=== PATIENT | female | born 2005 | race Caucasian/White ===

== ENCOUNTER 2025-02-22 12:45 | Inpatient (IN) | payer MEDICAID, SELFPAY ==
[2025-02-22] VITALS (9 sets, daily range): BP systolic 107–148; BP diastolic 70–87; PULSE 82–110; RESP 10–21; TEMP 36.7–37.6; O2SAT 97–100; BMI 16.4
--- NOTE | ~2025-02-22 | CT_ITS ---
EXAMINATION: CT ABDOMEN AND PELVIS WITH CONTRAST CLINICAL INFORMATION: Abdominal pain COMPARISON: None available. TECHNIQUE: Multidetector volumetric images were obtained from the superior aspect of the liver through the pubic symphysis following administration 85 mL of Omnipaque 350 intravenous contrast. Sagittal and coronal reformatted images were obtained on the technologist's workstation. Oral contrast: No This CT examination was performed using dose optimization techniques as appropriate, variously including the following: *Automated exposure control *Adjustment of mA and/or kV according to patient size (this includes techniques or standardized protocols for targeted exams where dose is matched to indication/reason for exam; i.e. extremities or head) *Use of iterative reconstruction technique. DLP: 322 FINDINGS: LUNG BASES: The visualized lung bases are unremarkable. LIVER, GALLBLADDER, AND BILIARY TREE: The liver is normal in size, shape, and attenuation. No focal hepatic lesion or biliary ductal dilatation is present. The gallbladder is unremarkable with no evidence of radiopaque gallstones, gallbladder wall thickening, or obvious pericholecystic inflammatory changes. PANCREAS: Unremarkable. SPLEEN: Unremarkable. ADRENAL GLANDS: Unremarkable. KIDNEYS AND URETERS: There are bilateral striated nephrograms without radiopaque calculi. There is a large septated perinephric low-attenuation mass especially surrounding the left upper and mid pole resulting in scalloping of the lateral cortex. It measures approximately 9 cm in length and 3.3 cm wide and 25 Hounsfield units. There is a intra-articular renal cortical medullary lesion measuring 1.3 cm on axial slice 23/3 measuring 40 Hounsfield units. There are additional smaller lesions seen in the upper and lower pole right kidney. . It measures BLADDER: Unremarkable. GASTROINTESTINAL TRACT: Large amount of stool seen throughout the colon without significant distention. The small bowel loops are normal caliber. Appendix is not visualized. No free air or free fluid suspected.. ABDOMINAL WALL: No significant hernia is appreciated. LYMPH NODES: Normal. VASCULAR: Unremarkable. PELVIC VISCERA: There is no free fluid. No abnormal pelvic lymphadenopathy. OSSEOUS STRUCTURES: No aggressive lytic or sclerotic process seen . No rib fracture seen. CT/CT abdomen pelvis w IV con IMPRESSION: Moderate to significant constipation. No bowel obstruction Striated bilateral nephrograms with a large perinephric hypodense mass scalloping the lateral cortex of left kidney. Differential diagnostic includes hematoma from trauma, ruptured angiomyolipoma or sequelae of striated nephrogram. Correlate with clinical history or previous CT there labile Differential diagnosis for right nephrogram includes ureteric obstruction, acute pyelonephritis, renal contusion, renal and thrombosis or normal delayed nephrogram phase. , Fleischner guidelines were followed. Electronically signed by: Edgardo Beverly MD 02/24/2025 07:36 AM EDT RP
--- NOTE | 2025-02-22 12:48 | ED_ITS ---
HPI - General Adult General Chief complaint: Abdominal Pain Stated complaint: Stomach Pain x 2 Days Time Seen by Provider: 02/22/25 14:26 Source: patient Mode of arrival: ambulatory History of Present Illness ED Provider: HPI narrative: 20-year-old female with history of type 1 diabetes, 5 days ago switched over her insulin pump to she reports sliding scale, has been having increased epigastric abdominal pain, stated he had an episode of nausea and vomiting reports her sugars have been in 200s, when she presented there was noted that she was significantly hyperglycemic with glucose over 600, she has had DKA in the past. Denies alcohol use, drug use at least for the past 1 month prior to that sounds like she was a social drinker, no rashes no vaginal bleeding or discharge reported. Has not had any other symptoms to suspect underlying infectious etiology such as cough, but does state that she has had decreased p.o. intake and decreased appetite for the past few weeks. Sounds like she has had some stomach issues and epigastric abdominal pain which led up to this. Related Data Allergies Allergy/AdvReac Type Severity Reaction Status Date / Time No Known Allergies Allergy Verified 02/22/25 12:51 Review of Systems 2 Constitutional: Constitutional: Reports as per [facility] Social History Social History Advance Directives: No Advance Directives Information Provided: Yes Patient : No Physical Exam ED Vital Signs: Vital Signs - 24 hr 02/22/25 12:47 Temperature 98.7 F Pulse Rate 110 H Respiratory Rate 20 Blood Pressure 148/87 H Pulse Oximetry 100 Oxygen Delivery Method Room Air BMI result Body Mass Index 16.4 Const Other: * Gen: ?Overall well-appearing patient * HEENT: Dry oral mucosa, no lymphadenopathy, uvula midline * Neck: Supple, * CV: RRR, no obvious murmurs appreciated * Resp: ?No wheezing rales rhonchi no stridor moving air well * Abd: ?Epigastric tenderness, bilateral lower quadrant tenderness, essentially generalized tenderness throughout, and she reported CVA tenderness on both sides as well * MSK: FROM, strength 5/5 all extremities * Skin:dry, intact, no mottling noted, extremities warm to touch * Neuro: ?Alert and oriented x3, moving upper and lower extremities symmetrically, no obvious facial asymmetry noted Course Course Course Narrative: This is a rapid medical exam performed by Jose Gutierrez NP: Additional HPI, ROS, PE not included below will be deferred to primary provider. Patient is a 20-year-old female with pmhx T1DM presenting with complaint of generalized abd pain since yesterday which she describes as severe. Vomited x 2 today after taking antacids. Feels weak/dizzy. Denies fever. Worse with laying, ambulation and sitting. Afebrile, mildly tachycardic at 110. Plan: labs, UA Medical Decision Making Medical Decision Making [facility] Narrative: 15:11 patient evaluated with signs and symptoms consistent with diabetic ketoacidosis, wondering whether the onset was due to the fact that she has switched over from insulin pump to sliding scale, she states she ran out of her insulin pump medication. She has also had some abdominal discomfort and acid reflux, she is cachectic and sounds like she has had some stomach issues in eating issues. Her blood work is consistent with diabetic ketoacidosis, she has metabolic acidosis, anion gap of 32, checked and a lactate but gap can be explained by beta hydroxybutyrate which was 9.48, she also has creatinine of 1.7 her prior blood work revealed that she has normal creatinine this is from her last visit at [facility]. This is the 1st time she is in this institution. She is complaining of epigastric abdominal pain I would hold off any imaging at this time, and she does have a leukocytosis that is very frequent fighting in diabetics and so I would treat her with fluids, antiemetics, re-evaluate and determine whether imaging is indicated. Because she is going to be on insulin drip to close the gap she is going to be going to ICU, this has been discussed with Emil Thurman. Lab Data [facility] Lab Attestation statement: I reviewed the patient's lab results. 02/22/25 13:29 02/22/25 13:29 Labs: Lab Results 02/22/25 02/22/25 Range/Units 13:29 13:35 WBC 16.8 H (4.8-10.8) X10*3/uL RBC 3.72 L (4.20-5.50) X10*6/uL Hgb 12.0 (12.0-16.0) g/dl Hct 34.2 L (37.0-47.0) % MCV 91.9 (80.0-98.0) fL MCH 32.3 (27.0-33.0) pg MCHC 35.1 H (31.0-35.0) g/dl RDW 12.1 (11.0-16.0) % Plt Count 287 (160-400) X10*3/uL MPV 9.3 L (9.4-12.3) fL Immature Gran % (Auto) 1.2 H (0.0-0.4) % Neut % (Auto) 89.9 H (45-73) % Lymph % (Auto) 3.3 L (20-40) % [place] % (Auto) 5.2 (2-11) % Eos % (Auto) 0.0 (0-4) % Baso % (Auto) 0.4 (0-2) % Lymph # (Auto) 0.6 L (1.2-4.9) X10*3/uL [place] # (Auto) 0.9 (0.1-1.2) X10*3/uL Eos # (Auto) 0.0 (0.0-0.4) X10*3/uL Baso # (Auto) 0.1 (0.0-0.2) X10*3/uL Abs Immat Gran (auto) 0.20 H (0.00-0.03) X10*3/uL Absolute Neuts (auto) 15.1 H (2.0-8.3) x10*3/uL Absolute Nucleated RBC 0.000 (0.0-0.012) X10*3/uL Nucleated RBC % (auto) 0.0 (0.0-0.2) /100WBC VBG pH 7.18 L* (7.32-7.43) VBG pCO2 21 mmHg VBG pO2 34 mmHg VBG HCO3 8 L (22-26) mmol/L VBG O2 Saturation 42.0 % VBG Base Excess -18.0 mmol/L Sodium 130 L (135-145) mmol/L Potassium 4.7 (3.3-5.1) mmol/L Chloride 95 L (96-108) mmol/L Carbon Dioxide 8 L* (22-29) mmol/L Anion Gap 32 H (12-20) BUN 18 H (9-16) mg/dL Creatinine 1.70 H (0.5-1.4) mg/dL Estim Creat Clear Calc 35.0 Estimated GFR 38 Random Glucose 603 H* (60-115) mg/dL Calcium 9.3 (8.4-10.2) mg/dL Total Bilirubin 0.5 (0.0-1.0) mg/dL AST 14 (5-31) U/L ALT 6 (0-31) U/L Alkaline Phosphatase 170 H (39-117) U/L Total Protein 7.4 (6.5-8.0) g/dL Albumin 3.4 L (3.5-5.0) g/dL Lipase 13 (8-78) U/L Beta-Hydroxybutyrate 9.48 H (0.02-0.27) mmol/L Beta HCG, Quant < 2 mIU/mL Critical Care Time Critical Care Time Critical Care Time: Yes Total Critical Care Time: 40 Attestation: Time is exclusive of separately billable procedures. Time includes: direct patient care, patient reassessment, coordination of patient care, interpretation of data (laboratory data, pulse oximetry, arterial blood gases and chest xrays), review of patient's medical records, medical consultation and documentation of patient care. Procedures excluded from critical care time: central intravenous line placement and electrocardiography. Discharge Plan Discharge Clinical Impression: DKA, type 1 Patient Disposition: Admitted As Inpatient Print Language: Angolan
[2025-02-22 13:36] LABS: MANUAL DIFF FLAG NO
[2025-02-22 13:37] LABS: Venous Blood Gas Refer to POC result
[2025-02-22 13:40] LABS: Basophils Absolute Auto 0.1 X10*3/uL (0.0-0.2); Basophils Percent Auto 0.4 % (0-2); Hematocrit 34.2 % (37.0-47.0); Imm Gran Pct Auto 1.2 % (0.0-0.4); Lymphocytes Absolute Auto 0.6 X10*3/uL (1.2-4.9); Lymphocytes Percent Auto 3.3 % (20-40); Mean Corpuscular HGB Conc 35.1 g/dl (31.0-35.0); Mean Corpuscular Hemoglobin 32.3 pg (27.0-33.0); Mean Corpuscular Volume 91.9 fL (80.0-98.0); Mean Platelet Volume 9.3 fL (9.4-12.3); Monocytes Absolute Auto 0.9 X10*3/uL (0.1-1.2); Monocytes Percent Auto 5.2 % (2-11); Neutrophils Absolute Auto 15.1 x10*3/uL (2.0-8.3); Neutrophils Percent Auto 89.9 % (45-73); Platelet Count 287 X10*3/uL (160-400); Red Blood Count 3.72 X10*6/uL (4.20-5.50); Red Cell Distribution Width 12.1 % (11.0-16.0); White Blood Count 16.8 X10*3/uL (4.8-10.8)
[2025-02-22 13:44] LABS: VBG HCO3 8 mmol/L (22-26); VBG pCO2 21 mmHg; VBG pH 7.18 (7.32-7.43); VBG pO2 34 mmHg
[2025-02-22 14:08] LABS: Alanine Aminotransferase 6 U/L (0-31); Albumin Level 3.4 g/dL (3.5-5.0); Alkaline Phosphatase 170 U/L (39-117); Anion Gap 32 (12-20); Aspartate Amino Transferase 14 U/L (5-31); Bilirubin Total 0.5 mg/dL (0.0-1.0); Blood Urea Nitrogen 18 mg/dL (9-16); Calcium 9.3 mg/dL (8.4-10.2); Carbon Dioxide 8 mmol/L (22-29); Chloride 95 mmol/L (96-108); Estimated Glomerular Filt Rate 38; Glucose Random 603 mg/dL (60-115); HCG Quantitative < 2 mIU/mL; Lipase 13 U/L (8-78); Potassium 4.7 mmol/L (3.3-5.1); Sodium 130 mmol/L (135-145); Total Protein 7.4 g/dL (6.5-8.0)
[2025-02-22 14:45] LABS: Beta-Hydroxybutyrate 9.48 mmol/L (0.02-0.27)
--- OUTSIDE RECORDS SUMMARY | 2025-02-22 14:48 | XMS_ITS | Data Portability ---
Author Organization [facility] [address] Address [address] [place] [id number] Assessment No assessment recorded. Plan of Treatment Reminders Order Date Submit Date Provider Last Modified By Organization Details Last Modified Time Details Appointments None recorded. Lab None recorded. Referral None recorded. Procedures None recorded. Surgeries None recorded. Imaging None recorded. Medication Orders albuterol sulfate HFA 90 mcg/actuat ion aerosol inhaler 2023 [id number], [address] [place], [address], 16:41:25 Patient TargetsNo targets recorded. Patient Instructions Encounter Date Encounter Id Patient Instructions Last Modified By Organization Details Last Modified Time 02/18/2024 [id number] cough: care instructions [email or web address] Not available 02/18/2024 16:41:23 Reason for Referral None Reported. Problems Name Problem SNOMED Code Status Onset Date Resolution Date Notes Provider Name and Address Organization Details Recorded Time Type 1 diabetes mellitus 74189100 Active 024 CANDE Woods [facility] [place], [address] , [facility]DE Lewis [facility] 4 16:42:06 Problem Notes None recorded. Medical Equipment None Reported. Allergies No known drug allergies Medications Name Sig Start Date Stop Date Status Note LastModified by Organization Details LastModified Time freestyle lite test strips strp active Not Available Not Available Not Available penicillin V potassium 500 mg tablet TAKE 1 TABLET BY MOUTH TWICE A DAY active Not Available Not Available No t Available insulin aspart U-100 100 unit/mL subcutaneous solution INFUSE VIA INSULIN PUMP, MAX DAILY DOSE 100UNITS/ DAY active Not Available Not Available No t Available amoxicillin 875 mg-potassium clavulanate 125 mg tablet active Not Available Not Available Not Available Ventolin HFA 90 mcg/actuatio n aerosol inhaler Inhale 2 puffs every 4 hours by inhalation route for 30 days. active Not Available Not Available No t Available insulin aspar prot-insulin aspart 100 unit/mL (70-30) subcutaneous pen Inject by subcutaneou s route. active Not Available Not Available No t Available insulin aspart (U-100) 100 unit/mL (3 mL) subcutaneous pen SUBCUTANEOU S INFUSION 5-7 TIMES PER DAY. MAX DAILY DOSE 50 UNITS. active Not Available Not Available No t Available Lantus Solostar U-100 Insulin 100 unit/mL (3 mL) subcutaneous pen INJECT MAX DAILY DOSE OF 50 UNITS DAILY. FOR USE AT HOME AND SCHOOL. USE DOSING SHEET PROVIDED BY active Not Available Not Available No t Available Nexplanon 68 mg subdermal implant Inject by subcutaneou s route. active Not Available Not Available No t Available Dexcom G6 Sensor device IDDM USE TO MONITOR BLOOD SUGARS [facility] [id number] active Not Available Not Available Not Available Dexcom G6 Transmitter device USE WITH DEXCOM SENSOR DIRECTED active Not Available Not Available No t Available Baqsimi 3 mg/actuation nasal spray INSTILL 3MG INTO RIGHT NOSTRIL ONCE. USE FOR SIGNS OF SEVERE HYPOGLYCEMI A, REPEAT IN 15 MINUTES. active Not Available Not Available No t Available Omnipod 5 G6 Pods (Gen 5) subcutaneous cartridge USE TO GIVE INSULIN THROUGH OMNIPOD INSULIN PUMP. CHANGE EVERY 2-3 DAYS active Not Available Not Available No t Available Vitals Date Recorded Body height Body mass index (BMI) Body mass index (BMI) [Percentile] Per age and sex Body weight Body temperature Respiratory rate Oxygen saturation Oxygen saturation in Arterial blood by Pulse oximetry Heart rate Systolic blood pressure Diastolic blood pressure Provider Name and Address Organization Details Last Updated DateTime 4 157.48 cm 21 kg/m2 43 % 58064.1 2 g 96.9 [degF] 18 /min 100 % 100 % 71 /min 156 mm[Hg] 90 mm[Hg] Yola Rutherford [place] - [facility] 4 16:31:54 Social History Question Answer Notes LastModified by Organizat ion Details LastModified Time Tobacco Smoking Status Never Smoker CANDE Lay - [facility] 02/18/2024 16:30:15 Which Illicit Or Recreational Drugs Have You Used? Marijuana Information not available 02/18/2024 Have You Had Direct Contact, Or Contact During Intimacy, With Monkeypox Rash, Scabs, Or Body Fluids From A Person With Monkeypox? No Information not available 02/18/2024 What Was The Date Of Your Most Recent Tobacco Screening? 02/18/2024 Information not available 02/18/2024 Have You Recently Traveled Abroad? No Information not available 02/18/2024 Sex: Unknown Functional Status Question Answer Note LastModified by Organizat ion Details LastModified Time Do you use any illicit or recreational drugs? Yes Information not available 02/18/2024 Do you or have you ever used any other forms of tobacco or nicotine? No Information not available 02/18/2024 What is your level of alcohol consumption? Occasional Information not available 02/18/2024 Mental Status None recorded. Family History Relationship Description Onset Age of this Age Resolved Age Notes LastModified by Organization Details LastModified Time Father No current problems or disability Not available 02/17 16:29:58 Mother No current problems or disability Not available 02/17 16:29:58 Medical History No medical history recorded. Gynecological History Statement/Question Response Date of LMP Obstetrics History GPAL:G 0 P 0 0 0 0 Past Encounters Encounter ID Performer Location Encounter Start Date Encounter Closed Date Diagnosis/Indication Diagnosis SNOMED-CT Code Diagnosis ICD10 Code Diagnosis Note [id number] [address] [place] [address] 03/11/2020 09:01:53 03/11/2020 09:34:04 [id number] [address] [place] [address] 07/28/2018 09:42:45 07/28/2018 10:15:14 [id number] [address] [place] [address] 06/16/2018 16:34:19 06/16/2018 17:50:01 [id number] [address] [place] [address] 12/23/2018 15:42:58 12/23/2018 16:39:21 [id number] [address] [place] [address] 02/16/2018 15:50:43 02/16/2018 16:26:06 [id number] CANDE ARSHAD [address] [facility] [place] [address] 02/18/2024 16:20:50 02/18/2024 16:44:56 Cough 03511853 R05.9 You are being treated for a cough that is most like related to post nasal drainageCu rrently your exam does not suggest anything worrisome like pneumonia or a bacterial infection. The following are my recommenda tions to help you with your symptoms and recovery.1 . Take Ibuprofen or Tylenol if you do not have any allergies to these medication s. If you take a blood thinner you should not take NSAIDS like Ibuprofen. These medication will help with the inflammati on in your respirator y tract which should help the cough.2. Do not take any decongesta nts at this time because this will dry out that tract too much. If you have a lot of nasal congestion you can try nasal decongesta nts, but I would not take them more than 5 days.3. Use a humidifier or add a cup of water by your bed. Sometimes if our sleeping environmen t is too dry this can lead to cough4. Salt Water Gargles5. Saline nasal spray is helpful. I would be seen again if you develop any of the following. 1. Cough last longer than 3 weeks - and has not worsened2. You develop a thick productive cough3. Develop shortness of breath or wheezing4. Develop achy feel or discomfort in a specific chest location5. Fever > 100.5 I would go immediatel y to the Emergency Room if you develop:1. Chest Pain2. Severe Shortness of breath3. Coughing up Blood. Most coughs will resolve on their own without any interventi on in 3 weeks. If they last longer we need to evaluate and rule out some other condition like Acid Reflux, or lung pathology. Thank you for using [facility] today - please don't hesitate to contact up or return to see if you have any questions or concerns. Health Concerns Section Related Observation LastModified by Organization Detai ls LastModified Time None Recorded Concern Status LastModified by Organization Details LastModified Time None Recorded Advance Directives Directive None Recorded Payers Insurance Date Sequence Insurance Name Policy Number Policy Nguyễn Covered Member ID Nguyễn Member ID Guarantor Name 03/03/[address] [facility] - DOS ON OR AFTER 2023 - [facility] (MEDICAID REPLACEMENT - HMO) Irma Recio [id number] Irma Recio 02/18/2024 1 [employer] - DOS ON OR AFTER 2023 - [facility] [employer] (MEDICAID REPLACEMENT - HMO) Irma Recio [id number] Irma Recio Notes Date Note Type Note Provider Name and Address Organization Details Recorded Time 02/18/2024 text/html 19 y/o female with a week of congestion and cough, bringing up mucus with cough. some SOB with coughing fits CANDE Woods [address] [place], [address], [place] - [facility] 02/18/2024 16:42:37 OBGyn Episode No OBEpisode recorded.
[2025-02-22] MEDS: Insulin Regular, Human 100 UNIT/ML 10 ML VIAL IVPUSH (15:33)
[2025-02-22] MEDS: Insulin Regular/NS 100 UNIT/100 ML PLAST..BAG IVCONT (15:33)
[2025-02-22] MEDS: Lactated Ringers 1,000 ML 250 ML IVCONT ×2 (15:40→18:05)
[2025-02-22] MEDS: ondansetron HCL 4 MG/2 ML VIAL IVPUSH (15:40)
[2025-02-22] MEDS: Heparin Sodium,Porcine 5,000 UNIT/ML VIAL 5000 UNIT SUBCUT ×2 (15:40→23:06)
--- NOTE | 2025-02-22 15:56 | PM.CCHP ---
History of Present Illness Date of Service: 02/22/25 Chief Complaint: Abdominal pain 20-year-old lady with underlying type 1 diabetes mellitus recently switch to insulin pump presenting with nausea, vomiting, and abdominal pain over the last day. On ER evaluation patient with diabetic ketoacidosis, started on IV insulin and IV fluids and admitted to the intensive care unit. Review of Systems Constitutional: Constitutional: Denies daytime sleepiness, Denies excessive sweating, Denies fatigue, Denies fever(s), Denies lethargy, Denies malaise, Denies night sweats, Denies snoring and Denies weight loss Eyes: Eyes: Denies blurry vision and Denies itchy eyes ENT: Denies nasal congestion, Denies post nasal drip, Denies sinus pain, Denies sinus pressure and Denies other ( Thrush) Cardiovascular: Cardiovascular: Denies chest pain, Denies pedal edema, Denies dyspnea, Denies orthopnea and Denies paroxysmal nocturnal dyspnea Respiratory: Respiratory: Denies cough, Denies hemoptysis, Denies excessive phlegm production, Denies dyspnea, Denies snoring and Denies wheezing Gastrointestinal: Gastrointestinal: Reports abdominal pain, Denies heartburn and Reports nausea Musculoskeletal: Musculoskeletal: Denies myalgias, Denies arthralgias and Denies joint swelling Integumentary/Breasts: Skin/Breast: Denies rash Neurologic: Denies memory loss and Denies seizure-like activity Psychiatric: Psychiatric: Denies abnormal sleep pattern, Denies anxiety and Denies memory loss Endocrine: Endocrine: Denies excessive sweating, Denies fatigue and Denies heat intolerance Hematologic/Lymphatic: Hematologic/Lymphatic: Denies easy bruising Allergic/Immunologic: Allergic/Immunologic: Denies itchy eyes, Denies seasonal rhinorrhea and Denies wheezing PMFSH Social History Social History Advance Directives: No Advance Directives Information Provided: Yes Patient : No Meds Allergies Allergy/AdvReac Type Severity Reaction Status Date / Time No Known Allergies Allergy Verified 02/22/25 12:51 Active Medications: Current Medications Heparin Sodium (Porcine) (Heparin Sodium,Porcine 5,000 Unit/Ml Vial) 5,000 unit SUBCUT Q[facility]H [facility] Last Admin: 02/22/25 15:40 Dose: 5,000 unit Lactated Ringer's (Lr) 1,000 mls @ 250 mls/hr IVCONT .Q4H [facility] Last Admin: 02/22/25 15:40 Dose: 250 mls/hr Insulin Human Regular (Myxredlin) 100 unit in 100 mls @ 4 mls/hr IVCONT .Q24H [facility]; Protocol Last Admin: 02/22/25 15:33 Dose: 4 unit/hr, 4 mls/hr Physical Exam Vital Signs: Vital Signs: Last Vital Signs Temp 98.7 F 02/22/25 12:47 Pulse 110 H 02/22/25 12:47 Resp 20 02/22/25 12:47 BP 148/87 H 02/22/25 12:47 Pulse Ox 100 02/22/25 12:47 O2 Del Method Room Air 02/22/25 12:47 BMI result Body Mass Index 16.4 Const: General: no acute distress, alert and awake Eyes: Sclerae: sclerae normal EOM: EOMs intact bilaterally Neck: Neck: Yes no lymphadenopathy, Yes trachea midline and Yes supple Resp: Effort & Inspection: normal respiratory effort and no respiratory distress Auscultation: clear to auscultation bilaterally Cardio: Rate: tachycardic Rhythm: regular rhythm Heart sounds: no gallops, no murmurs and no rubs GI: Palpation (GI): Soft to palpation and Other GI palpation findings present ( Nontender) Auscultation: normal bowel sounds Extrem: General: Yes no pedal edema, No clubbing and No cyanosis Results Labs 02/22/25 13:29 02/22/25 13:29 Labs: Laboratory Results - last 24 hr 02/22/25 02/22/25 13:29 13:35 MCV 91.9 MCH 32.3 MCHC 35.1 H RDW 12.1 Plt Count 287 MPV 9.3 L Immature Gran % (Auto) 1.2 H Neut % (Auto) 89.9 H Lymph % (Auto) 3.3 L [place] % (Auto) 5.2 Eos % (Auto) 0.0 Baso % (Auto) 0.4 Lymph # (Auto) 0.6 L [place] # (Auto) 0.9 Eos # (Auto) 0.0 Baso # (Auto) 0.1 Abs Immat Gran (auto) 0.20 H Absolute Neuts (auto) 15.1 H Absolute Nucleated RBC 0.000 Nucleated RBC % (auto) 0.0 VBG pH 7.18 L* VBG pCO2 21 VBG pO2 34 VBG HCO3 8 L VBG O2 Saturation 42.0 VBG Base Excess -18.0 Anion Gap 32 H Estim Creat Clear Calc 35.0 Estimated GFR 38 Random Glucose 603 H* Calcium 9.3 Total Bilirubin 0.5 AST 14 ALT 6 Alkaline Phosphatase 170 H Total Protein 7.4 Albumin 3.4 L Lipase 13 Beta-Hydroxybutyrate 9.48 H Beta HCG, Quant < 2 Assessment and Plan (1) DKA, type 1: Qualifiers: Diabetes mellitus complication detail: without coma Qualified Code(s): E10.10 - Type 1 diabetes mellitus with ketoacidosis without coma Status: Acute Plan Assessment: 20-year-old lady admitted with diabetic ketoacidosis, likely secondary to recent switch to pump insulin Plan: Neuro: No acute issues. Cardiac: No acute issues. Pulmonary: No acute issues. Renal: Acute renal failure with metabolic acidosis likely secondary to diabetic ketoacidosis. Non oliguric. Continue IV fluid support. Continue to monitor renal indices and urine output. Endo: Diabetic ketoacidosis, continue to titrate off insulin drip as per protocol. GI: No acute issues. ID: No acute issues Heme/Onc: No acute issues. Psych: No acute issues. Miscellaneous: No acute issues. Prophylaxis: Heparin Diet: NPO
[2025-02-22] MEDS: Magnesium Hydrox/Alum Hydrox 30 ML ORAL.SUSP PO (15:57)
[2025-02-22] MEDS: Famotidine/PF 20 MG/2 ML VIAL IVPUSH (15:57)
[2025-02-22 16:25] LABS: Lactic Acid 2.4 mmol/L (0.5-2.0)
[2025-02-22 16:30] LABS: Glucose, Whole Blood 380 mg/dL (60-115)
[2025-02-22 17:05] LABS: Glucose, Whole Blood 331 mg/dL (60-115)
[2025-02-22 17:45] LABS: Appearance Urine Clear; Color Urine Yellow; Glucose Urine UA >=1000 mg/dL (Negative); Leukocyte Esterase Urine Negative (Negative); Nitrite Urine Negative (Negative); PH 5.5 (5.0-9.0); Specific Gravity - Urine 1.015 (1.005-1.025); UMIC TRIGGER UA YES; UMIC TRIGGER UACC YES; Urine Blood Negative (Negative); Urine Ketones >=160 mg/dL (Negative); Urine Protein Negative (Neg-Trace)
--- NOTE | 2025-02-22 17:50 | PHA.MEDREC ---
Addendum entered by Monse Nelson RPh 02/22/25 18:16: Demetrice called patient's mother but no one picked up the phone. Dr. Thurman was made aware of the discrepancies between what patient said and what were filled. Med rec was reviewed by [facility]. Original Note: Pharmacy Consult ? Medication Reconciliation Pharmacy has completed the medication reconciliation. Spoke to patient to confirm med list Patient states she takes novolin per sliding scale and Lantus 38 units at bedtime , however there are no claims. Patient says she fill all her medications from [facility]. Called [facility] and they confirm patient last filled Insulin Aspart 05/09/24, however there was script on hold for Insulin Aspart max 50 units per day and Lantus max 50 units at bedtime since October 2024 that was never picked up. Had ICU Nurse ask if patient fills at any other pharmacy and she told him she filled at [facility]. Called [facility] and they confirmed that patient last filled 08/18/2024 Insulin Aspart 100 units/ ml, Dexcom G6 sensor and Transmitter , and Omnipod 5 G6/7 pods in. No claims for Lantus with them. Patient states she has a nexplanon implant in her right arm.
[2025-02-22 17:53] LABS: Amphetamine Screen Urine Not Detected (Not Detect); Barbiturates, Urine Not Detected (Not Detect); Benzodiazepines Screen Urine Not Detected (Not Detect); Buprenorphine Scr Not Detected (Not Detect); Cannabinoid Screen Urine Not Detected (Not Detect); Cocaine Screen Urine Not Detected (Not Detect); Fentanyl, urine Not Detected (Not Detect); Methadone Screen, Urine Not Detected (Not Detect); Opiate Screen Urine Not Detected (Not Detect); Oxycodone Screen Urine Not Detected (Not Detect); Phencyclidine Screen Urine Not Detected (Not Detect)
[2025-02-22 17:58] LABS: Reflex Lactate? Lactic Acid Added
[2025-02-22 18:05] LABS: Glucose, Whole Blood 315 mg/dL (60-115)
[2025-02-22 18:09] LABS: Bacteria Urine None Seen (None Seen); RBC Urine 0-2 /HPF (0-2); Squamous Epithelial Cell Urine 0-2 /HPF (0-2); WBC Urine 0-5 /HPF (0-5)
[2025-02-22] MEDS: fentaNYL citrate/PF 100 MCG/2 ML VIAL 50 MCG IVPUSH (18:28)
[2025-02-22 19:04] LABS: ~Lactic Acid-LAB USE ONLY 1.3 mmol/L (0.5-2.0)
[2025-02-22 19:14] LABS: Glucose, Whole Blood 291 mg/dL (60-115)
[2025-02-22 20:05] LABS: Glucose, Whole Blood 230 mg/dL (60-115)
[2025-02-22 20:21] LABS: Anion Gap 17 (12-20); Blood Urea Nitrogen 15 mg/dL (9-16); Calcium 8.4 mg/dL (8.4-10.2); Carbon Dioxide 15 mmol/L (22-29); Chloride 106 mmol/L (96-108); Creatinine Clr Calc Pharmacy 56.8; Estimated Glomerular Filt Rate > 60; Glucose Random 250 mg/dL (60-115); Potassium 3.3 mmol/L (3.3-5.1); Sodium 135 mmol/L (135-145)
[2025-02-22] MEDS: Dextrose 5 % and Lactated Ring 1,000 ML 150 ML IVCONT (20:59)
[2025-02-22] MEDS: Potassium Chloride/H20 10 MEQ/100 ML PIGGYBACK 100 MEQ IV ×3 (21:01→23:06)
[2025-02-22 21:05] LABS: Glucose, Whole Blood 187 mg/dL (60-115)
[2025-02-22 22:09] LABS: Glucose, Whole Blood 172 mg/dL (60-115)
[2025-02-22 23:12] LABS: Glucose, Whole Blood 179 mg/dL (60-115)
[2025-02-23] VITALS (18 sets, daily range): BP systolic 93–117; BP diastolic 59–80; PULSE 81–107; RESP 14–23; TEMP 36.2–37.5; O2SAT 93–100; BMI 16.5
[2025-02-23 00:04] LABS: Glucose, Whole Blood 149 mg/dL (60-115)
[2025-02-23] MEDS: Potassium Chloride/H20 10 MEQ/100 ML PIGGYBACK 100 MEQ IV (00:13)
[2025-02-23 01:06] LABS: Glucose, Whole Blood 140 mg/dL (60-115)
[2025-02-23 01:40] LABS: Anion Gap 13 (12-20); Blood Urea Nitrogen 12 mg/dL (9-16); Calcium 8.3 mg/dL (8.4-10.2); Carbon Dioxide 21 mmol/L (22-29); Chloride 106 mmol/L (96-108); Creatinine Clr Calc Pharmacy 64.8; Estimated Glomerular Filt Rate > 60; Glucose Random 152 mg/dL (60-115); Magnesium 1.7 mg/dL (1.6-2.6); Phosphorus 1.4 mg/dL (2.7-4.5); Potassium 3.5 mmol/L (3.3-5.1); Sodium 136 mmol/L (135-145)
[2025-02-23 02:05] LABS: Glucose, Whole Blood 174 mg/dL (60-115)
[2025-02-23] MEDS: Potassium Phosphate/NS 15 MMOL/250 ML PLAST..BAG 62.5 MMOL IV (02:21)
[2025-02-23] MEDS: Dextrose 5 % and Lactated Ring 1,000 ML 150 ML IVCONT (03:04)
[2025-02-23 03:20] LABS: Glucose, Whole Blood 203 mg/dL (60-115)
[2025-02-23 04:04] LABS: Glucose, Whole Blood 187 mg/dL (60-115)
--- NOTE | 2025-02-23 04:56 | PC.NURSE ---
Assumed care at 1900. Patient is alert and oriented x4, very pleasant. Insulin gtt running per MAR, titrated per DKA protocol. IV fluids changed from LR to D5LR per REPORTING DEVELOPER Catrachito, see MAR. Patient endorses mild abdominal pain/discomfort, but reports it is much improved. Patient able to ambulate to the commode to void without issue. Patient repositions self in bed. Bed locked in lowest position, call cullen within reach.
[2025-02-23 05:07] LABS: Glucose, Whole Blood 200 mg/dL (60-115)
[2025-02-23 05:16] LABS: VBG Base Excess 0.8 mmol/L; VBG HCO3 22 mmol/L (22-26); VBG pCO2 25 mmHg; VBG pH 7.55 (7.32-7.43); VBG pO2 64 mmHg
[2025-02-23 05:21] LABS: MANUAL DIFF FLAG NO
[2025-02-23 05:26] LABS: Basophils Absolute Auto 0.1 X10*3/uL (0.0-0.2); Basophils Percent Auto 0.4 % (0-2); Eosinophils Percent Auto 0.2 % (0-4); Hematocrit 26.4 % (37.0-47.0); Hemoglobin 9.6 g/dl (12.0-16.0); Imm Gran Abs Auto 0.07 X10*3/uL (0.00-0.03); Imm Gran Pct Auto 0.6 % (0.0-0.4); Lymphocytes Absolute Auto 1.2 X10*3/uL (1.2-4.9); Lymphocytes Percent Auto 9.3 % (20-40); Mean Corpuscular HGB Conc 36.4 g/dl (31.0-35.0); Mean Platelet Volume 9.6 fL (9.4-12.3); Monocytes Absolute Auto 1.1 X10*3/uL (0.1-1.2); Monocytes Percent Auto 8.6 % (2-11); Neutrophils Absolute Auto 10.2 x10*3/uL (2.0-8.3); Neutrophils Percent Auto 80.9 % (45-73); Platelet Count 238 X10*3/uL (160-400); Red Cell Distribution Width 11.9 % (11.0-16.0); White Blood Count 12.6 X10*3/uL (4.8-10.8)
[2025-02-23 05:46] LABS: Albumin Level 2.6 g/dL (3.5-5.0); Anion Gap 12 (12-20); Blood Urea Nitrogen 10 mg/dL (9-16); Calcium 8.2 mg/dL (8.4-10.2); Carbon Dioxide 20 mmol/L (22-29); Chloride 106 mmol/L (96-108); Estimated Glomerular Filt Rate > 60; Glucose Random 203 mg/dL (60-115); Magnesium 1.7 mg/dL (1.6-2.6); Phosphorus 2.9 mg/dL (2.7-4.5); Potassium 3.2 mmol/L (3.3-5.1); Sodium 135 mmol/L (135-145)
[2025-02-23 06:02] LABS: Venous Blood Gas Refer to POC result
[2025-02-23 06:05] LABS: Glucose, Whole Blood 181 mg/dL (60-115)
[2025-02-23] MEDS: Potassium Chloride ER 20 MEQ TAB.ER.PRT PO (06:28)
[2025-02-23 07:13] LABS: Glucose, Whole Blood 185 mg/dL (60-115)
[2025-02-23] MEDS: Heparin Sodium,Porcine 5,000 UNIT/ML VIAL 5000 UNIT SUBCUT ×3 (07:52→23:33)
[2025-02-23] MEDS: Albumin Human 25 % 50 ML 100 ML IV ×4 (07:52→09:43)
[2025-02-23 08:25] LABS: Glucose, Whole Blood 169 mg/dL (60-115)
[2025-02-23] MEDS: Insulin Glargine,Hum.rec.anlog 100 UNIT/ML 10 ML VIAL 30 UNIT SUBCUT (08:35)
--- NOTE | 2025-02-23 09:42 | MHC.CM.PN ---
CM MET WITH PT AT BEDSIDE IN ICU. 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 PT DECLINES TO COMPLETE A HCP AT THIS TIME. PCP FRANSISCA STOVALL DP: HOME WITH FAMILY SUPPORT IS THE GOAL. PT 'S FAMILY WITH TRANSPORT. CM WILL CONTINUE TO FOLLOW FOR ANY CHANGE TO DC PLAN/NEEDS.
--- NOTE | 2025-02-23 10:28 | PM.CCPN ---
Subjective Subjective Date of Service: 02/23/25 Interval History: 20-year-old lady with underlying type 1 diabetes mellitus recently switch to insulin pump presenting with nausea, vomiting, and abdominal pain over the last day. On ER evaluation patient with diabetic ketoacidosis, started on IV insulin and IV fluids and admitted to the intensive care unit. No events overnight. Titrated off insulin drip. Critical Care Time (minutes): 0 Physical Exam Vital Signs: Vital Signs: Last Vital Signs Temp 97.5 F 02/23/25 08:00 Pulse 107 H 02/23/25 09:00 Resp 18 02/23/25 09:00 BP 102/68 02/23/25 09:00 Pulse Ox 99 02/23/25 09:00 O2 Del Method Room Air 02/23/25 09:00 BMI result Body Mass Index 16.5 Const: General: no acute distress, alert and awake Eyes: Sclerae: sclerae normal EOM: EOMs intact bilaterally Neck: Neck: Yes no lymphadenopathy, Yes trachea midline and Yes supple Resp: Effort & Inspection: normal respiratory effort and no respiratory distress Auscultation: clear to auscultation bilaterally Cardio: Rate: regular rate Rhythm: regular rhythm Heart sounds: no gallops, no murmurs and no rubs GI: Palpation (GI): Soft to palpation and Other GI palpation findings present ( Nontender) Auscultation: normal bowel sounds Extrem: General: Yes no pedal edema, No clubbing and No cyanosis Objective Data Labs 02/23/25 05:04 02/23/25 05:04 Labs: Laboratory Results - last 24 hr 02/22/25 02/22/25 02/22/25 13:29 13:35 15:51 WBC 16.8 H RBC 3.72 L Hgb 12.0 Hct 34.2 L MCV 91.9 MCH 32.3 MCHC 35.1 H RDW 12.1 Plt Count 287 MPV 9.3 L Immature Gran % (Auto) 1.2 H Neut % (Auto) 89.9 H Lymph % (Auto) 3.3 L [place] % (Auto) 5.2 Eos % (Auto) 0.0 Baso % (Auto) 0.4 Lymph # (Auto) 0.6 L [place] # (Auto) 0.9 Eos # (Auto) 0.0 Baso # (Auto) 0.1 Abs Immat Gran (auto) 0.20 H Absolute Neuts (auto) 15.1 H Absolute Nucleated RBC 0.000 Nucleated RBC % (auto) 0.0 VBG pH 7.18 L* VBG pCO2 21 VBG pO2 34 VBG HCO3 8 L VBG O2 Saturation 42.0 VBG Base Excess -18.0 Sodium 130 L Potassium 4.7 Chloride 95 L Carbon Dioxide 8 L* Anion Gap 32 H BUN 18 H Creatinine 1.70 H Estim Creat Clear Calc 35.0 Estimated GFR 38 POC Glucose Random Glucose 603 H* Lactic Acid 2.4 H* Lactic Acid F/U @ 2Hr Calcium 9.3 Phosphorus Magnesium Total Bilirubin 0.5 AST 14 ALT 6 Alkaline Phosphatase 170 H Total Protein 7.4 Albumin 3.4 L Lipase 13 Beta-Hydroxybutyrate 9.48 H Beta HCG, Quant < 2 Urine Color Urine Appearance Urine pH Ur Specific [place] Urine Protein Urine Glucose (UA) Urine Ketones Urine Blood Urine Nitrite Ur Leukocyte Esterase Urine RBC Urine WBC Ur Squamous Epith Cells Urine Bacteria Hyaline Casts Urine Opiates Screen Ur Buprenorphine Scrn Ur Oxycodone Screen Urine Methadone Screen Urine Fentanyl Screen Ur Barbiturates Screen Ur Phencyclidine Scrn Ur Amphetamines Screen U Benzodiazepines Scrn Urine Cocaine Screen U Marijuana (THC) Screen 02/22/25 02/22/25 02/22/25 16:26 17:02 17:30 WBC RBC Hgb Hct MCV MCH MCHC RDW Plt Count MPV Immature Gran % (Auto) Neut % (Auto) Lymph % (Auto) [place] % (Auto) Eos % (Auto) Baso % (Auto) Lymph # (Auto) [place] # (Auto) Eos # (Auto) Baso # (Auto) Abs Immat Gran (auto) Absolute Neuts (auto) Absolute Nucleated RBC Nucleated RBC % (auto) VBG pH VBG pCO2 VBG pO2 VBG HCO3 VBG O2 Saturation VBG Base Excess Sodium Potassium Chloride Carbon Dioxide Anion Gap BUN Creatinine Estim Creat Clear Calc Estimated GFR POC Glucose 380 H* 331 H Random Glucose Lactic Acid Lactic Acid F/U @ 2Hr Calcium Phosphorus Magnesium Total Bilirubin AST ALT Alkaline Phosphatase Total Protein Albumin Lipase Beta-Hydroxybutyrate Beta HCG, Quant Urine Color Yellow Urine Appearance Clear Urine pH 5.5 Ur Specific [place] 1.015 Urine Protein Negative Urine Glucose (UA) >=1000 H Urine Ketones >=160 Urine Blood Negative Urine Nitrite Negative Ur Leukocyte Esterase Negative Urine RBC 0-2 Urine WBC 0-5 Ur Squamous Epith Cells 0-2 Urine Bacteria None Seen Hyaline Casts 6-10 Urine Opiates Screen Not Detected Ur Buprenorphine Scrn Not Detected Ur Oxycodone Screen Not Detected Urine Methadone Screen Not Detected Urine Fentanyl Screen Not Detected Ur Barbiturates Screen Not Detected Ur Phencyclidine Scrn Not Detected Ur Amphetamines Screen Not Detected U Benzodiazepines Scrn Not Detected Urine Cocaine Screen Not Detected U Marijuana (THC) Screen Not Detected 02/22/25 02/22/25 02/22/25 18:01 18:33 19:11 WBC RBC Hgb Hct MCV MCH MCHC RDW Plt Count MPV Immature Gran % (Auto) Neut % (Auto) Lymph % (Auto) [place] % (Auto) Eos % (Auto) Baso % (Auto) Lymph # (Auto) [place] # (Auto) Eos # (Auto) Baso # (Auto) Abs Immat Gran (auto) Absolute Neuts (auto) Absolute Nucleated RBC Nucleated RBC % (auto) VBG pH VBG pCO2 VBG pO2 VBG HCO3 VBG O2 Saturation VBG Base Excess Sodium Potassium Chloride Carbon Dioxide Anion Gap BUN Creatinine Estim Creat Clear Calc Estimated GFR POC Glucose 315 H 291 H Random Glucose Lactic Acid Lactic Acid F/U @ 2Hr 1.3 Calcium Phosphorus Magnesium Total Bilirubin AST ALT Alkaline Phosphatase Total Protein Albumin Lipase Beta-Hydroxybutyrate Beta HCG, Quant Urine Color Urine Appearance Urine pH Ur Specific [place] Urine Protein Urine Glucose (UA) Urine Ketones Urine Blood Urine Nitrite Ur Leukocyte Esterase Urine RBC Urine WBC Ur Squamous Epith Cells Urine Bacteria Hyaline Casts Urine Opiates Screen Ur Buprenorphine Scrn Ur Oxycodone Screen Urine Methadone Screen Urine Fentanyl Screen Ur Barbiturates Screen Ur Phencyclidine Scrn Ur Amphetamines Screen U Benzodiazepines Scrn Urine Cocaine Screen U Marijuana (THC) Screen 02/22/25 02/22/25 02/22/25 19:56 20:02 21:01 WBC RBC Hgb Hct MCV MCH MCHC RDW Plt Count MPV Immature Gran % (Auto) Neut % (Auto) Lymph % (Auto) [place] % (Auto) Eos % (Auto) Baso % (Auto) Lymph # (Auto) [place] # (Auto) Eos # (Auto) Baso # (Auto) Abs Immat Gran (auto) Absolute Neuts (auto) Absolute Nucleated RBC Nucleated RBC % (auto) VBG pH VBG pCO2 VBG pO2 VBG HCO3 VBG O2 Saturation VBG Base Excess Sodium 135 Potassium 3.3 D Chloride 106 Carbon Dioxide 15 L Anion Gap 17 BUN 15 Creatinine 1.05 Estim Creat Clear Calc 56.8 Estimated GFR > 60 POC Glucose 230 H 187 H Random Glucose 250 H Lactic Acid Lactic Acid F/U @ 2Hr Calcium 8.4 D Phosphorus Magnesium Total Bilirubin AST ALT Alkaline Phosphatase Total Protein Albumin Lipase Beta-Hydroxybutyrate Beta HCG, Quant Urine Color Urine Appearance Urine pH Ur Specific [place] Urine Protein Urine Glucose (UA) Urine Ketones Urine Blood Urine Nitrite Ur Leukocyte Esterase Urine RBC Urine WBC Ur Squamous Epith Cells Urine Bacteria Hyaline Casts Urine Opiates Screen Ur Buprenorphine Scrn Ur Oxycodone Screen Urine Methadone Screen Urine Fentanyl Screen Ur Barbiturates Screen Ur Phencyclidine Scrn Ur Amphetamines Screen U Benzodiazepines Scrn Urine Cocaine Screen U Marijuana (THC) Screen 02/22/25 02/22/25 02/22/25 22:05 23:08 23:58 WBC RBC Hgb Hct MCV MCH MCHC RDW Plt Count MPV Immature Gran % (Auto) Neut % (Auto) Lymph % (Auto) [place] % (Auto) Eos % (Auto) Baso % (Auto) Lymph # (Auto) [place] # (Auto) Eos # (Auto) Baso # (Auto) Abs Immat Gran (auto) Absolute Neuts (auto) Absolute Nucleated RBC Nucleated RBC % (auto) VBG pH VBG pCO2 VBG pO2 VBG HCO3 VBG O2 Saturation VBG Base Excess Sodium Potassium Chloride Carbon Dioxide Anion Gap BUN Creatinine Estim Creat Clear Calc Estimated GFR POC Glucose 172 H 179 H 149 H Random Glucose Lactic Acid Lactic Acid F/U @ 2Hr Calcium Phosphorus Magnesium Total Bilirubin AST ALT Alkaline Phosphatase Total Protein Albumin Lipase Beta-Hydroxybutyrate Beta HCG, Quant Urine Color Urine Appearance Urine pH Ur Specific [place] Urine Protein Urine Glucose (UA) Urine Ketones Urine Blood Urine Nitrite Ur Leukocyte Esterase Urine RBC Urine WBC Ur Squamous Epith Cells Urine Bacteria Hyaline Casts Urine Opiates Screen Ur Buprenorphine Scrn Ur Oxycodone Screen Urine Methadone Screen Urine Fentanyl Screen Ur Barbiturates Screen Ur Phencyclidine Scrn Ur Amphetamines Screen U Benzodiazepines Scrn Urine Cocaine Screen U Marijuana (THC) Screen 02/23/25 02/23/25 02/23/25 01:02 01:11 02:01 WBC RBC Hgb Hct MCV MCH MCHC RDW Plt Count MPV Immature Gran % (Auto) Neut % (Auto) Lymph % (Auto) [place] % (Auto) Eos % (Auto) Baso % (Auto) Lymph # (Auto) [place] # (Auto) Eos # (Auto) Baso # (Auto) Abs Immat Gran (auto) Absolute Neuts (auto) Absolute Nucleated RBC Nucleated RBC % (auto) VBG pH VBG pCO2 VBG pO2 VBG HCO3 VBG O2 Saturation VBG Base Excess Sodium 136 Potassium 3.5 Chloride 106 Carbon Dioxide 21 L Anion Gap 13 BUN 12 Creatinine 0.92 Estim Creat Clear Calc 64.8 Estimated GFR > 60 POC Glucose 140 H 174 H Random Glucose 152 H Lactic Acid Lactic Acid F/U @ 2Hr Calcium 8.3 L Phosphorus 1.4 L Magnesium 1.7 Total Bilirubin AST ALT Alkaline Phosphatase Total Protein Albumin Lipase Beta-Hydroxybutyrate Beta HCG, Quant Urine Color Urine Appearance Urine pH Ur Specific [place] Urine Protein Urine Glucose (UA) Urine Ketones Urine Blood Urine Nitrite Ur Leukocyte Esterase Urine RBC Urine WBC Ur Squamous Epith Cells Urine Bacteria Hyaline Casts Urine Opiates Screen Ur Buprenorphine Scrn Ur Oxycodone Screen Urine Methadone Screen Urine Fentanyl Screen Ur Barbiturates Screen Ur Phencyclidine Scrn Ur Amphetamines Screen U Benzodiazepines Scrn Urine Cocaine Screen U Marijuana (THC) Screen 02/23/25 02/23/25 02/23/25 03:14 03:58 05:04 WBC 12.6 H RBC 3.00 L Hgb 9.6 L Hct 26.4 L D MCV 88.0 MCH 32.0 MCHC 36.4 H RDW 11.9 Plt Count 238 MPV 9.6 Immature Gran % (Auto) 0.6 H Neut % (Auto) 80.9 H Lymph % (Auto) 9.3 L [place] % (Auto) 8.6 Eos % (Auto) 0.2 Baso % (Auto) 0.4 Lymph # (Auto) 1.2 [place] # (Auto) 1.1 Eos # (Auto) 0.0 Baso # (Auto) 0.1 Abs Immat Gran (auto) 0.07 H Absolute Neuts (auto) 10.2 H Absolute Nucleated RBC 0.000 Nucleated RBC % (auto) 0.0 VBG pH VBG pCO2 VBG pO2 VBG HCO3 VBG O2 Saturation VBG Base Excess Sodium 135 Potassium 3.2 L Chloride 106 Carbon Dioxide 20 L Anion Gap 12 BUN 10 Creatinine 0.82 Estim Creat Clear Calc 73.0 Estimated GFR > 60 POC Glucose 203 H 187 H 200 H Random Glucose 203 H Lactic Acid Lactic Acid F/U @ 2Hr Calcium 8.2 L Phosphorus 2.9 Magnesium 1.7 Total Bilirubin AST ALT Alkaline Phosphatase Total Protein Albumin 2.6 L Lipase Beta-Hydroxybutyrate Beta HCG, Quant Urine Color Urine Appearance Urine pH Ur Specific [place] Urine Protein Urine Glucose (UA) Urine Ketones Urine Blood Urine Nitrite Ur Leukocyte Esterase Urine RBC Urine WBC Ur Squamous Epith Cells Urine Bacteria Hyaline Casts Urine Opiates Screen Ur Buprenorphine Scrn Ur Oxycodone Screen Urine Methadone Screen Urine Fentanyl Screen Ur Barbiturates Screen Ur Phencyclidine Scrn Ur Amphetamines Screen U Benzodiazepines Scrn Urine Cocaine Screen U Marijuana (THC) Screen 02/23/25 02/23/25 02/23/25 05:12 06:01 07:10 WBC RBC Hgb Hct MCV MCH MCHC RDW Plt Count MPV Immature Gran % (Auto) Neut % (Auto) Lymph % (Auto) [place] % (Auto) Eos % (Auto) Baso % (Auto) Lymph # (Auto) [place] # (Auto) Eos # (Auto) Baso # (Auto) Abs Immat Gran (auto) Absolute Neuts (auto) Absolute Nucleated RBC Nucleated RBC % (auto) VBG pH 7.55 H VBG pCO2 25 VBG pO2 64 VBG HCO3 22 VBG O2 Saturation 95.0 VBG Base Excess 0.8 Sodium Potassium Chloride Carbon Dioxide Anion Gap BUN Creatinine Estim Creat Clear Calc Estimated GFR POC Glucose 181 H 185 H Random Glucose Lactic Acid Lactic Acid F/U @ 2Hr Calcium Phosphorus Magnesium Total Bilirubin AST ALT Alkaline Phosphatase Total Protein Albumin Lipase Beta-Hydroxybutyrate Beta HCG, Quant Urine Color Urine Appearance Urine pH Ur Specific [place] Urine Protein Urine Glucose (UA) Urine Ketones Urine Blood Urine Nitrite Ur Leukocyte Esterase Urine RBC Urine WBC Ur Squamous Epith Cells Urine Bacteria Hyaline Casts Urine Opiates Screen Ur Buprenorphine Scrn Ur Oxycodone Screen Urine Methadone Screen Urine Fentanyl Screen Ur Barbiturates Screen Ur Phencyclidine Scrn Ur Amphetamines Screen U Benzodiazepines Scrn Urine Cocaine Screen U Marijuana (THC) Screen 02/23/25 08:22 WBC RBC Hgb Hct MCV MCH MCHC RDW Plt Count MPV Immature Gran % (Auto) Neut % (Auto) Lymph % (Auto) [place] % (Auto) Eos % (Auto) Baso % (Auto) Lymph # (Auto) [place] # (Auto) Eos # (Auto) Baso # (Auto) Abs Immat Gran (auto) Absolute Neuts (auto) Absolute Nucleated RBC Nucleated RBC % (auto) VBG pH VBG pCO2 VBG pO2 VBG HCO3 VBG O2 Saturation VBG Base Excess Sodium Potassium Chloride Carbon Dioxide Anion Gap BUN Creatinine Estim Creat Clear Calc Estimated GFR POC Glucose 169 H Random Glucose Lactic Acid Lactic Acid F/U @ 2Hr Calcium Phosphorus Magnesium Total Bilirubin AST ALT Alkaline Phosphatase Total Protein Albumin Lipase Beta-Hydroxybutyrate Beta HCG, Quant Urine Color Urine Appearance Urine pH Ur Specific [place] Urine Protein Urine Glucose (UA) Urine Ketones Urine Blood Urine Nitrite Ur Leukocyte Esterase Urine RBC Urine WBC Ur Squamous Epith Cells Urine Bacteria Hyaline Casts Urine Opiates Screen Ur Buprenorphine Scrn Ur Oxycodone Screen Urine Methadone Screen Urine Fentanyl Screen Ur Barbiturates Screen Ur Phencyclidine Scrn Ur Amphetamines Screen U Benzodiazepines Scrn Urine Cocaine Screen U Marijuana (THC) Screen Progress Note: A&P Assessment and plan (1) DKA, type 1: Status: Acute Plan Assessment: 20-year-old lady admitted with diabetic ketoacidosis, likely secondary to recent switch to pump insulin Plan: Neuro: No acute issues. Cardiac: No acute issues. Pulmonary: No acute issues. Renal: Acute renal failure with metabolic acidosis secondary to diabetic ketoacidosis, resolved. Non oliguric. Continue to monitor renal indices and urine output. Endo: Diabetic ketoacidosis, resolved. Titrated off insulin drip. Continue subcutaneous insulin. GI: No acute issues. ID: No acute issues Heme/Onc: No acute issues. Psych: No acute issues. Miscellaneous: No acute issues. Prophylaxis: Heparin Diet: Diabetic Quality Stroke Does the patient have a stroke diagnosis?: No VTE Prior VTE?: No VTE Risk Level:: Medical - moderate - high VTE Device Contraindication: Treatment Not Indicated VTE Drug Contraindication: N/A - Med Ordered
[2025-02-23 11:14] LABS: Glucose, Whole Blood 375 mg/dL (60-115)
[2025-02-23] MEDS: fentaNYL citrate/PF 100 MCG/2 ML VIAL 50 MCG IVPUSH (11:21)
[2025-02-23] MEDS: Insulin Lispro 100 UNIT/ML 3 ML VIAL SUBCUT ×4 (11:29→20:47)
[2025-02-23] MEDS: Insulin Glargine,Hum.rec.anlog 100 UNIT/ML 10 ML VIAL 10 UNIT SUBCUT ×2 (11:30→14:07)
[2025-02-23 13:50] LABS: Anion Gap 15 (12-20); Blood Urea Nitrogen 10 mg/dL (9-16); Calcium 8.3 mg/dL (8.4-10.2); Carbon Dioxide 22 mmol/L (22-29); Chloride 100 mmol/L (96-108); Creatinine Clr Calc Pharmacy 61.7; Estimated Glomerular Filt Rate > 60; Glucose Random 430 mg/dL (60-115); Potassium 3.7 mmol/L (3.3-5.1); Sodium 133 mmol/L (135-145)
[2025-02-23 16:34] LABS: Glucose, Whole Blood 224 mg/dL (60-115)
[2025-02-23] MEDS: iohexoL 350 MG/ML 100 ML INFUS..BTL IV (16:37)
[2025-02-23 20:46] LABS: Glucose, Whole Blood 233 mg/dL (60-115)
[2025-02-23] MEDS: Acetaminophen 325 MG TABLET 650 MG PO (20:48)
[2025-02-24 02:42] VITALS: BP 101/67; PULSE 84; RESP 18; TEMP 36.8; O2SAT 99
[2025-02-24 06:00] VITALS: BMI 17.3
[2025-02-24 06:35] LABS: MANUAL DIFF FLAG NO
[2025-02-24 07:01] LABS: Basophils Absolute Auto 0.1 X10*3/uL (0.0-0.2); Basophils Percent Auto 0.6 % (0-2); Eosinophils Percent Auto 0.5 % (0-4); Hemoglobin 10.2 g/dl (12.0-16.0); Imm Gran Abs Auto 0.07 X10*3/uL (0.00-0.03); Imm Gran Pct Auto 0.8 % (0.0-0.4); Lymphocytes Absolute Auto 1.2 X10*3/uL (1.2-4.9); Lymphocytes Percent Auto 13.8 % (20-40); Mean Corpuscular HGB Conc 35.2 g/dl (31.0-35.0); Mean Corpuscular Hemoglobin 31.1 pg (27.0-33.0); Mean Corpuscular Volume 88.4 fL (80.0-98.0); Mean Platelet Volume 9.3 fL (9.4-12.3); Monocytes Absolute Auto 0.8 X10*3/uL (0.1-1.2); Monocytes Percent Auto 9.5 % (2-11); Neutrophils Absolute Auto 6.5 x10*3/uL (2.0-8.3); Neutrophils Percent Auto 74.8 % (45-73); Platelet Count 252 X10*3/uL (160-400); Red Blood Count 3.28 X10*6/uL (4.20-5.50); Red Cell Distribution Width 11.9 % (11.0-16.0); White Blood Count 8.7 X10*3/uL (4.8-10.8)
[2025-02-24 07:17] LABS: Albumin Level 2.9 g/dL (3.5-5.0); Anion Gap 13 (12-20); Blood Urea Nitrogen 10 mg/dL (9-16); Calcium 8.9 mg/dL (8.4-10.2); Carbon Dioxide 27 mmol/L (22-29); Chloride 102 mmol/L (96-108); Cholesterol 110 mg/dL (<200); Estimated Glomerular Filt Rate > 60; Glucose Random 185 mg/dL (60-115); HDL Cholesterol 21 mg/dL (>40); LDL Cholesterol Calculated 53 mg/dL (<100); Magnesium 1.9 mg/dL (1.6-2.6); Phosphorus 2.9 mg/dL (2.7-4.5); Sodium 139 mmol/L (135-145); Triglycerides 182 mg/dL (<150)
[2025-02-24 07:33] LABS: Glucose, Whole Blood 224 mg/dL (60-115)
[2025-02-24 07:42] VITALS: BP 99/65; PULSE 82; RESP 18; TEMP 36.8; O2SAT 100
[2025-02-24] MEDS: Insulin Lispro 100 UNIT/ML 3 ML VIAL SUBCUT ×2 (08:03→11:37)
[2025-02-24] MEDS: Potassium Chloride ER 20 MEQ TAB.ER.PRT 40 MEQ PO (08:03)
[2025-02-24] MEDS: Insulin Glargine,Hum.rec.anlog 100 UNIT/ML 10 ML VIAL 60 UNIT SUBCUT (08:11)
[2025-02-24 11:27] VITALS: BP 105/71; PULSE 87; RESP 20; TEMP 37.1; O2SAT 100
[2025-02-24 11:29] LABS: Glucose, Whole Blood 338 mg/dL (60-115)
--- NOTE | 2025-02-24 11:31 | MHC.CLN ---
F/U PT REPORTS UBW 115# AND WITH 19% SIGNIFICANT WT LOSS X1 MONTH R/T POOR PO INTAKE SECONDARY TO ACUTE ILLNESS R/T GI ISSUES PT IS UNDER WT FOR HT AT THIS TIME NO S/S MALNUTRITION 75% X2 MEALS DIET RX: 2200DM DIET PT RECEPTIVE TO DRINKING ENSURE JULIO CESAR FLAVOR BID TO INCREASE KCALS SUPP TO PROVIDE 700KCALS, 40G PROTEIN WITH 100% ACCEPTANCE MONITOR PO INTAKE AND ENCOURAGE SUPPLEMENT GOAL PT TO RETURN TO UBW RANGE 115#
--- NOTE | 2025-02-24 12:03 | PM.DS ---
DS: Providers Provider Date of Service: 02/24/25 Date of admission: 02/22/25 15:12 Date of discharge: 02/24/25 Primary care physician: Carine Cyr MD DS: Diagnosis Discharge Diagnosis (1) DKA, type 1: Status: Acute (2) Acute hypokalemia: Status: Acute (3) Acute kidney injury: Status: Acute (4) Type I diabetes mellitus: Status: Acute DS: Summary Hospital Course Hospital Course: Admission note HPI 20-year-old lady with underlying type 1 diabetes mellitus recently switch to insulin pump presenting with nausea, vomiting, and abdominal pain over the last day. On ER evaluation patient with diabetic ketoacidosis, started on IV insulin and IV fluids and admitted to the intensive care unit. Hospital course The patient was admitted to ICU for insulin drip for treatment of diabetic ketoacidosis. responded well to treatment with IV fluids, IV Insulin drip as anion gap close and she was started on Long acting insulin along with SSI with good tolerance of diet. She will restart her insulin pump tomorrow morning as she received Lantus this morning. She was also noted to be in Acute renal failure with acute metabolic acidosis as Creatinine elevated to 1.7 on presentation. responded well to IV fluids as kidney function improved back to baseline of 0.7. Advised to stay well hydrated, advance diet as tolerated and follow up with Endocrinology for better adjustment of her insulin pump needs. Evaluated for abdominal pain with a CT scan that was negative for infection or obstruction but showed Striated bilateral nephrograms with a large perinephric hypodense mass scalloping the lateral cortex of left kidney. Differential diagnostic includes hematoma from trauma, ruptured angiomyolipoma or sequelae of striated nephrogram. Discussed with Urology Dr Dwyer who thought Bilateral delayed nephrograms likely from dehydration, no evidence of obstruction, no acute process that needs intervention. Other finding less likely hemorrhage, incidental finding. recommended follow up in clinic to do a routine MRI. [facility] [place] Urology nurse reach out to patient to schedule. Discharge plan Advance diet as tolerated Follow with [facility] [place] Endocrinology for Insulin pump need Restart your Pump tomorrow morning Use Sliding scare Insulin today Use Lantus and Sliding scale as needed when your pump runs off Insulin Follow up with Dr Dwyer from urology in office for further evaluation Time Attestation Discharge Coordination Time (in mins): 42 Quality: Safe Use of Opioids Does Pt have an Active Cancer Diagnosis on the Problem List?: No Quality: Stroke Does the patient have a stroke diagnosis?: No Physical Exam Vital Signs: Vital Signs: Last Vital Signs Temp 98.7 F 02/24/25 11:27 Pulse 87 02/24/25 11:27 Resp 20 02/24/25 11:27 BP 105/71 02/24/25 11:27 Pulse Ox 100 02/24/25 11:27 O2 Del Method Room Air 02/24/25 11:27 BMI result Body Mass Index 17.3 Const: Other: Constitutional : Awake, interactive, not in distress Neck : Normal inspection, Supple Cardiovascular : RRR, no JVP, no lower extremity edema Respiratory : good bilateral air entry, no crackles, wheezes or rhonchi Gastrointestinal: soft, lax, Normal bowel sounds, Non tender Skin : Warm, Dry Neurological : Alert & oriented x3, No focal deficit DS: Data Data Completed and Pending Labs on day of discharge: Laboratory Results - last 24 hr 02/23/25 02/23/25 02/23/25 13:16 16:30 20:38 WBC RBC Hgb Hct MCV MCH MCHC RDW Plt Count MPV Immature Gran % (Auto) Neut % (Auto) Lymph % (Auto) Rankin % (Auto) Eos % (Auto) Baso % (Auto) Lymph # (Auto) Rankin # (Auto) Eos # (Auto) Baso # (Auto) Abs Immat Gran (auto) Absolute Neuts (auto) Absolute Nucleated RBC Nucleated RBC % (auto) Sodium 133 L Potassium 3.7 Chloride 100 Carbon Dioxide 22 Anion Gap 15 BUN 10 Creatinine 0.97 Estim Creat Clear Calc 61.7 Estimated GFR > 60 POC Glucose 224 H 233 H Random Glucose 430 H* Calcium 8.3 L Phosphorus Magnesium Albumin Triglycerides Cholesterol LDL Cholesterol, Calc HDL Cholesterol 02/24/25 02/24/25 02/24/25 06:22 07:29 11:25 WBC 8.7 RBC 3.28 L Hgb 10.2 L Hct 29.0 L MCV 88.4 MCH 31.1 MCHC 35.2 H RDW 11.9 Plt Count 252 MPV 9.3 L Immature Gran % (Auto) 0.8 H Neut % (Auto) 74.8 H Lymph % (Auto) 13.8 L Rankin % (Auto) 9.5 Eos % (Auto) 0.5 Baso % (Auto) 0.6 Lymph # (Auto) 1.2 Rankin # (Auto) 0.8 Eos # (Auto) 0.0 Baso # (Auto) 0.1 Abs Immat Gran (auto) 0.07 H Absolute Neuts (auto) 6.5 Absolute Nucleated RBC 0.000 Nucleated RBC % (auto) 0.0 Sodium 139 Potassium 3.0 L Chloride 102 Carbon Dioxide 27 Anion Gap 13 BUN 10 Creatinine 0.74 Estim Creat Clear Calc 85.0 Estimated GFR > 60 POC Glucose 224 H 338 H Random Glucose 185 H Calcium 8.9 D Phosphorus 2.9 Magnesium 1.9 Albumin 2.9 L Triglycerides 182 H Cholesterol 110 LDL Cholesterol, Calc 53 HDL Cholesterol [address] scan - abdomen: Radiologist's impression: ITS Impressions Abdomen/Pelvis CT 02/23/25 15:07 IMPRESSION: Moderate to significant constipation. No bowel obstruction Striated bilateral nephrograms with a large perinephric hypodense mass scalloping the lateral cortex of left kidney. Differential diagnostic includes hematoma from trauma, ruptured angiomyolipoma or sequelae of striated nephrogram. Correlate with clinical history or previous CT there labile Differential diagnosis for right nephrogram includes ureteric obstruction, acute pyelonephritis, renal contusion, renal and thrombosis or normal delayed nephrogram phase. , Fleischner guidelines were followed. Electronically signed by: Edgardo Beverly MD 02/24/2025 07:36 AM EDT RP Discharge Plan Discharge Anticipated Discharge Date/Time: 02/24/25 12:01 Patient Disposition: Home, Self-Care Discharge Diagnosis: Diabetic ketoacidosis Referrals: Carine Cyr MD [Primary Care Provider] - 1 Week Discharge Medications: Continued insulin aspart U-100 100 unit/mL solution 0 - 50 sliding scale dose subcut DAILY Rx Instructions: Max daily dose of 50 units (DME) Dexcom G6 Sensor Device 1 ea MISCELLANEOUS Q10D (DME) Dexcom G6 Transmitter Device MISCELLANEOUS (DME) Omnipod 5 G6-G7 Pods (Gen 5) Cartridge subcut insulin glargine [Lantus U-100 Insulin] 100 unit/mL Solution 38 unit SUBCUT BEDTIME cetirizine [Zyrtec] 10 mg Tablet 10 mg PO DAILY PRN (Reason: Allergy Symptoms) Nexplanon 68 mg Implant 68 mg SUBDERMAL USEASDIRECTD Rx Instructions: In right arm Discharge Orders: Discharge Order (Routine); Ordered 02/24/25 Ordered By: Thiago Gambino Diet: Diabetic diet Activity on Discharge: As tolerated Stand Alone Forms: Patient Portal Discharge page Print Language: [place] Care Plan Goals: Advance diet as tolerated Follow with [facility] [place] Endocrinology for Insulin pump need Restart your Pump tomorrow morning Use Sliding scare Insulin today Use Lantus and Sliding scale as needed when your pump runs off Insulin Follow up with Dr Dwyer from urology in office for further evaluation Health Concerns: Diabetic ketoacidosis Plan of Treatment: Insulin Assessment: as above
--- NOTE | 2025-02-24 13:24 | MHC.CM.PN ---
DP: PT HAS BEEN MEDICALLY CLEARED FOR DC HOME, NO SERVICES. FAMILY WILL TRANSPORT HOME.
--- NOTE | 2025-02-27 08:13 | P.CDIM_ITS ---
PROVIDER RESPONSE TEXT: To clarify, the appropriate diagnosis supported by the clinical indicators: Underweight QUERY TEXT: PHYSICIAN'S DOCUMENTATION REQUEST Date of Query: 02/24/2025 12:17 PM EDT Patient Name: Irma Recio Admit Date: 02/22/2025 Dear Thiago Gambino MD, A review of the medical record indicates additional documentation may be needed. Please review below and update the documentation accordingly. Clinical Indicators: Height: 5ft 3in Weight: 44.4kg BMI: 17.3 Other Clinical Notes Supporting Significance of the BMI: Nursing notes Height and Weight: Underweight with BMI 17.3 Clinical nutrition notes 02/24/25 - Pt receptive to drinking Ensure BID to increase KCALS. If possible, please provide an associated diagnosis related to the abnormal BMI, such as: Underweight Cachexia Anorexia Other (explain) Clinically unable to determine (explain) Thank you, Suzy Roldan, CCS, CDIS Use of terms such as suspected, likely, concern for, or probable (associated with a specific diagnosi s that is being evaluated, monitored, or treated as if it exists) are acceptable and can be coded in the inpatient se tting, when documented at the time of discharge. Please use your independent medical judgment in providing your response. THIS QUERY IS PART OF THE PERMANENT MEDICAL RECORD
== END 2025-02-24 14:05 | disposition home or self-care (01) | DRG 420 ==
LOC: HO.ED 15:25 → HO.EDOVER 15:27 → HO.ICU 15:34 → HO.IMC 02-23 17:04
PROVIDERS: Nurse Practitioner Family; Registered Nurse Emergency; Admitting Provider Internal Medicine Pulmonary Disease; Emergency Provider Emergency Medicine; PCP Family Medicine; Visit Provider Student in an Organized Health Care Education/Training Program
DX: E10.10 Type 1 diabetes mellitus with ketoacidosis without coma (principal); N17.9 Acute kidney failure, unspecified; R63.6 Underweight; Z68.1 Body mass index [BMI] 19.9 or less, adult
CPT/HCPCS: 36415; 74177; 80048; 80053; 80061; 80307; 81001; 82010; 82040; 82803; 82947; 83605; 83690; 83735; 84100; 84702; 85025; 99285; J1308; J1644; J2405; J3010; J3480; J7120; P9047; Q9967

== ENCOUNTER 2025-02-22 15:12 | Outpatient (BNV) | payer MEDICAID, SELFPAY | END 2025-02-23 15:07 | PROVIDERS: Admitting Provider Internal Medicine Pulmonary Disease; Emergency Provider Emergency Medicine; PCP Family Medicine; Visit Provider Radiology Diagnostic Radiology | DX: K59.00 Constipation, unspecified (principal); N28.89 Other specified disorders of kidney and ureter | CPT/HCPCS: 74177 ==

== ENCOUNTER → 2025-02-22 15:12 | Outpatient (BNV) | payer MEDICAID, SELFPAY | PROVIDERS: Admitting Provider Internal Medicine Pulmonary Disease; Emergency Provider Emergency Medicine; PCP Family Medicine; Visit Provider Internal Medicine Pulmonary Disease | DX: E10.10 Type 1 diabetes mellitus with ketoacidosis without coma (principal) | CPT/HCPCS: 99222; 99232 ==

== ENCOUNTER → 2025-02-22 15:12 | Outpatient (BNV) | payer MEDICAID, SELFPAY | PROVIDERS: Admitting Provider Internal Medicine Pulmonary Disease; Emergency Provider Emergency Medicine; PCP Family Medicine; Visit Provider Student in an Organized Health Care Education/Training Program | DX: E10.10 Type 1 diabetes mellitus with ketoacidosis without coma (principal); E87.6 Hypokalemia; N17.9 Acute kidney failure, unspecified; E10.9 Type 1 diabetes mellitus without complications | CPT/HCPCS: 99239 ==